=== PATIENT | female | born 1955 | race Caucasian/White ===

== ENCOUNTER 2016-09-14 11:18 | Emergency (ER) | payer OTHER ==
[~2016-09-14] VITALS: Ht 167.6 cm; Wt 76.9 kg
--- NOTE | 2016-09-14 11:27 | PD ---
HPI Chief Complaint: Left Ankle Pain After Trip and Fall Time Seen by Provider: 11:27 Travel History International Travel<30 days: No Contact w/Intl Traveler<30days: No History of Present Illness HPI 61-year-old female here from [place] presents to the emergency department status post trip and fall yesterday approximately 4 PM. Patient now is here with complaints of pain and swelling to the left lateral ankle and foot. She states she can barely bear weight on it. Pain is a 7 out of 10, and tenderness and with weightbearing. She denies numbness or tingling or weakness. She denies any other injury. She is allergic to pseudoephedrine. [facility] Social History Alcohol Use: No Tobacco Use: Yes Substance Use: No Allergies-Medications (Allergen,Severity, Reaction): Coded Allergies: Pseudoephedrine (Verified Allergy, Intermediate, 09/14/16) Reported Meds & Prescriptions Reported Meds & Active Scripts Active Ibuprofen 600 Mg Tab 600 Mg PO Q6H PRN Non-Aspirin Pain Relief ES (Acetaminophen) 500 Mg Tab 500 Mg PO Q6HR PRN Review of Systems Except as stated in HPI: all other systems reviewed are Neg General / Constitutional: No: Fever Eyes: No: Visual changes HENT: No: Headaches Cardiovascular: No: Chest Pain or Discomfort Respiratory: No: Shortness of Breath Gastrointestinal: No: Abdominal Pain Genitourinary: No: Dysuria Musculoskeletal: Positive: Arthralgias, Limited ROM, Pain, No: Myalgias, Weakness, Cramping, Edema Skin: No Rash Neurologic: No: Weakness Psychiatric: No: Depression Endocrine: No: Polydipsia Hematologic/Lymphatic: No: Easy Bruising Physical Exam Narrative GENERAL: Patient appears in no acute distress. SKIN: Warm and dry. Normal color. Normal turgor. HEAD: Atraumatic. Normocephalic. EYES: Pupils equal and round. No scleral icterus. No injection or drainage. ENT: No nasal bleeding or discharge. Mucous membranes pink and moist. Pharynx is clear. Airway is patent. NECK: Trachea midline. Supple nontender CARDIOVASCULAR: Regular rate and rhythm. RESPIRATORY: No accessory muscle use. Clear to auscultation. Breath sounds equal bilaterally. MUSCULOSKELETAL: Extremities without clubbing, cyanosis, or edema. Patient is obvious swelling and tenderness along the left lateral ankle and left dorsal lateral foot. No significant ecchymosis at this time. Range of motion is significantly limited secondary to patient's pain. Patient is able to dorsiflex and plantar flex without discomfort. There is no tenderness along the proximal fibula on the left. NEUROLOGICAL: Awake and alert. No obvious cranial nerve deficits. Motor grossly within normal limits. Five out of 5 muscle strength in the arms and legs. Normal speech. PSYCHIATRIC: Appropriate mood and affect; insight and judgment normal. Data Data Orders Ankle, Complete ([id number]) (09/14/16 11:30) Foot, Limited (2vws) (09/14/16 11:30) Ice/Cold Pack (09/14/16 11:30) Ibuprofen (Motrin) (09/14/16 11:30) Crutches (09/14/16 11:53) Splint Or Brace Apply/Monitor (09/14/16 11:53) [facility] Medical Decision Making Medical Screen Exam Complete: Yes Emergency Medical Condition: Yes Differential Diagnosis Left ankle sprain. Left ankle fracture. Left foot fracture. Narrative Course Patient is medically stable at time of exam. Ice is applied to the injured area. Patient is given ibuprofen 600 mg by mouth. X-rays are obtained of the left ankle and foot. No obvious fracture is noted on x-rays. Patient is placed in a stirrup Aircast ankle splint on the left as well as crutches for ambulation. Patient is to use ibuprofen 600 mg 4 times a day #40. Patient also is to use acetaminophen 1-2 tabs every 6 hours when necessary #60. Patient should be on ambulate as tolerated with crutches. Patient is to ice it frequently and follow up if symptoms are not improving in the next week. Diagnosis Primary Impression: Moderate left ankle sprain Qualified Code: S93.402A - Moderate left ankle sprain, initial encounter Referrals: Primary Care Physician Patient Instructions: Ankle Sprain (ED), Ankle Sprain Exercises (GEN), Ankle Stirrup Splint (ED), Crutch Instructions (ED), General Instructions Med/Other Pt SpecificInfo: Prescription(s) given Scripts Ibuprofen 600 Mg [id number] Mg PO Q6H PRN (Pain/Inflammation) #40 TAB Prov:Anju Glez MD 09/14/16 Acetaminophen (Non-Aspirin Pain Relief ES)500 Mg [id number] Mg PO Q6HR PRN (PAIN) # 60 TAB Prov:Anju Glez MD 09/14/16 Disposition: 01 DISCHARGE HOME Condition: Stable [place] Sep 14, 2016 11:27
[2016-09-14] MEDS ORDERED: IBUPROFEN 600 MG TAB PO ONE (11:30)
[2016-09-14] MEDS ORDERED: NON-500T13 PO (11:54)
[2016-09-14] MEDS ORDERED: IBUP-232 PO (11:54)
[2016-09-14 11:58] VITALS: BP 95/73; PULSE 106; RESP 18; TEMP 98.1; O2SAT 96
--- NOTE | 2016-09-14 12:15 | RADRPT ---
EXAM DATE/TIME: 09/14/2016 11:40 [facility] COMPARISON: No previous studies available for comparison. INDICATIONS : Left foot pain. Patient fell last night rolling her left foot and ankle. MEDICAL HISTORY : None. SURGICAL HISTORY : None. ENCOUNTER: Initial ACUITY: 2 days PAIN SCORE: 9/10 LOCATION: Left foot. FINDINGS: Two view examination of the left foot demonstrates no soft tissue swelling, dislocation, or fracture. The calcaneus is intact. Bony mineralization is normal. CONCLUSION: No acute disease. Ziggy Alicea MD on September 14, 2016 at 12:11 Board Certified Radiologist. This report was verified electronically.
--- NOTE | 2016-09-14 12:20 | RADRPT ---
EXAM DATE/TIME: 09/14/2016 11:41 [facility] COMPARISON: No previous studies available for comparison. INDICATIONS : Left ankle pain. Patient fell last night rolling her left foot and ankle. MEDICAL HISTORY : None. SURGICAL HISTORY : None. ENCOUNTER: Initial ACUITY: 2 days PAIN SCORE: 9/10 LOCATION: Left ankle. FINDINGS: There is soft tissue swelling adjacent to the lateral malleolus. There is no acute fracture or dislo cation. The ankle mortis is intact. CONCLUSION: 1. Soft tissue swelling involving the lateral malleolus. 2. No acute fracture or dislocation. Ziggy Alicea MD on September 14, 2016 at 12:14 Board Certified Radiologist. This report was verified electronically.
== END 2016-09-14 12:09 | disposition home or self-care (01) ==
LOC: PHEFT 11:18
DX: S93.402A Sprain of unspecified ligament of left ankle, initial encounter (principal); Z72.0 Tobacco use; W01.0XXA Fall on same level from slipping, tripping and stumbling without subsequent striking against object, initial encounter
CPT/HCPCS: 73610; 73620; 99283; E0113; L1906

== ENCOUNTER 2016-09-16 14:35 | Emergency (ER) | payer OTHER ==
[~2016-09-16] VITALS: Ht 167.6 cm; Wt 70.0 kg
[~2016-09-16 14:35] MED LIST: IBUP-232 PO; NON-500T13 PO
[2016-09-16 14:36] VITALS: BP 151/74; PULSE 82; RESP 18; TEMP 98.8; O2SAT 95
--- NOTE | 2016-09-16 14:43 | PD ---
Physical Exam Time Seen by Provider: 14:42 Narrative 61 y/o female recently seen here and dx with ankle sprain presents with persistent L ankle pain. Vital signs reviewed. Seen at triage desk. Awaiting bed placement. Data Data Last Documented VS Vital Signs Date Time Temp Pulse Resp B/P Pulse Ox O2 Delivery O2 Flow Rate FiO2 09/16/16 14:36 98.8 82 18 151/74 95 Room Air [facility] Medical Record Reviewed: Yes Supervised Visit with MARI: Reza Stevens Sep 16, 2016 14:43
--- NOTE | 2016-09-16 15:52 | PD ---
HPI Chief Complaint: Injury Time Seen by Provider: 15:45 Travel History International Travel<30 days: No Contact w/Intl Traveler<30days: No Traveled to known affect area: No History of Present Illness HPI 61-year-old female presents to the emergency Department with complaint of continued left ankle and foot pain after injuring it on Tuesday after tripping over a concrete slab. She was evaluated here at [place] after the injury and is requesting reevaluation. Patient has ankle stirrup splint in place. She has been ambulatory on the affected extremity and without using crutches. Patient presents to the emergency department without her crutches. She says she 's been icing and elevating the affected extremity. Denies paresthesias, loss of sensation to the affected extremity. Denies fever, vomiting. Allergies to pseudoephedrine. Has no other medical complaints. No other modifying factors or associated signs and symptoms. History Social History Alcohol Use: No Tobacco Use: Yes (1ppd) Allergies-Medications (Allergen,Severity, Reaction): Coded Allergies: Pseudoephedrine (Verified Allergy, Intermediate, "JITTERY", 09/14/16) Reported Meds & Prescriptions Reported Meds & Active Scripts Active Ibuprofen 600 Mg Tab 600 Mg PO Q6H PRN Non-Aspirin Pain Relief ES (Acetaminophen) 500 Mg Tab 500 Mg PO Q6HR PRN Review of Systems Except as stated in HPI: all other systems reviewed are Neg Physical Exam Narrative GENERAL: Well-nourished, well-developed female patient, in no acute distress SKIN: Warm and dry. HEAD: Atraumatic. Normocephalic. EYES: Pupils equal and round. No scleral icterus. No injection or drainage. ENT: Mucosa pink and moist. Airway patent. NECK: Trachea midline. CARDIOVASCULAR: Regular rate. RESPIRATORY: No accessory muscle use. GASTROINTESTINAL: Flat. MUSCULOSKELETAL: Left ankle and foot is edematous and with ecchymosis noted; without erythema; no obvious deformities likely with point tenderness to the lateral, medial, and midfoot zone. Left lower extremity is supple and non- tense with 2+ pedal pulses and sensory intact. No obvious deformities. No clubbing. No cyanosis. No edema. NEUROLOGICAL: Awake and alert. Oriented 3. No obvious cranial nerve deficits. Motor grossly within normal limits. Normal speech. PSYCHIATRIC: Appropriate mood and affect; insight and judgment normal. Data Data Last Documented VS Vital Signs Date Time Temp Pulse Resp B/P Pulse Ox O2 Delivery O2 Flow Rate FiO2 09/16/16 14:36 98.8 82 18 151/74 95 Room Air [facility] Medical Screen Exam Complete: Yes Emergency Medical Condition: No Differential Diagnosis Medical clearance, ankle sprain, foot sprain Narrative Course 61-year-old female presents requesting reevaluation of left ankle and foot injury. I reviewed the patient's medical record and She was seen here on Tuesday , September 14 and the left ankle and left foot x-rays concludes no acute findings. Patient has been ambulatory on the affected extremity without crutches. She has an ankle stirrup splint in place. Was provided crutches at the last visit and has them at home. Left lower extremity is supple and non-tense with 2+ pedal pulse and sensory intact. Instructed patient to compress, ice, elevate, and use crutches for support. Instructed patient to follow up outpatient with primary care provider or orthopedics if symptoms persist greater than 7-10 days. Vital signs are stable and the patient is stable for outpatient follow- up and treatment. The patient has no urgent or emergent medical complaints. There is no emergent or urgent medical need at this time. I instructed the patient to follow up with their primary care provider. A medical screening exam was performed: At the time of evaluation the presenting medical condition was determined not to be of an emergent nature. The patient was given the option of receiving additional care, but declined. Patient was given options for additional community resources from which to obtain care. The Patient Has Been advised to seek medical attention for their presenting complaint. The patient has been advised to return to the ER at any time if an emergent condition develops. Primary Impression: Encounter for medical screening examination Condition: Stable Kendal Guillory [facility] Sep 16, 2016 15:52
== END 2016-09-16 15:51 | disposition left against medical advice (07) ==
LOC: NEPK 14:35
DX: S93.402D Sprain of unspecified ligament of left ankle, subsequent encounter (principal); F17.210 Nicotine dependence, cigarettes, uncomplicated; W10.1XXD Fall (on)(from) sidewalk curb, subsequent encounter
CPT/HCPCS: 99281